=== PATIENT | female | born 1950 | race Caucasian/White ===

== ENCOUNTER → 2016-06-19 | Outpatient (CLI) | payer OTHER, MEDICARE | LOC: KOH-I 13:53 → CT 14:00 | DX: J32.8 Other chronic sinusitis (principal); J34.2 Deviated nasal septum | CPT/HCPCS: 70486 ==

== ENCOUNTER → 2020-09-14 | Outpatient (CLI) | payer MEDICARE ==
[~2020-09-14] MED LIST: NORCO 5-325 TA1 EACH PO; ZOFRAN ODT 4 MG4 MG PO
== END ==
LOC: NM 07:38
DX: R07.89 Other chest pain (principal); E78.5 Hyperlipidemia, unspecified; I10 Essential (primary) hypertension; E66.9 Obesity, unspecified; M47.9 Spondylosis, unspecified; R93.89 Abnormal findings on diagnostic imaging of other specified body structures
CPT/HCPCS: 78452; 93017; A9502; J2785

== ENCOUNTER → 2020-11-14 | Outpatient (CLI) | payer MEDICARE | LOC: KOH-I 10:49 | DX: R27.0 Ataxia, unspecified (principal); R51.9 Headache, unspecified; R29.6 Repeated falls; R90.89 Other abnormal findings on diagnostic imaging of central nervous system | CPT/HCPCS: 70450 ==

== ENCOUNTER 2021-08-05 16:09 | Emergency (ER) | payer MEDICARE | END 2021-08-05 19:48 | disposition home or self-care (01) | LOC: ER1 16:09 | DX: S09.90XA Unspecified injury of head, initial encounter (principal); I10 Essential (primary) hypertension; E78.5 Hyperlipidemia, unspecified; Z88.0 Allergy status to penicillin; W10.8XXA Fall (on) (from) other stairs and steps, initial encounter; Y92.009 Unspecified place in unspecified non-institutional (private) residence as the place of occurrence of the external cause | CPT/HCPCS: 70450; 71046; 72070; 72100; 72125; 72220; 99284 ==

== ENCOUNTER → 2021-09-04 | Outpatient (CLI) | payer MEDICARE ==
[~2021-09-04] VITALS: Ht 162.6 cm; Wt 77.1 kg
== END ==
LOC: OPSV 13:51
DX: M81.0 Age-related osteoporosis without current pathological fracture (principal)
CPT/HCPCS: 96365; J3489

== ENCOUNTER → 2021-11-18 | Outpatient (CLI) | payer MEDICARE | LOC: KOH-I 10:48 | DX: M79.671 Pain in right foot (principal) | CPT/HCPCS: 73630 ==

== ENCOUNTER → 2021-12-19 | Outpatient (CLI) | payer MEDICARE | LOC: KOH-I 09:01 | DX: S92.331A Displaced fracture of third metatarsal bone, right foot, initial encounter for closed fracture (principal); S92.341A Displaced fracture of fourth metatarsal bone, right foot, initial encounter for closed fracture | CPT/HCPCS: 73630 ==